=== PATIENT | female | born 1985 | race Caucasian/White ===

== ENCOUNTER 2016-04-25 18:55 | Emergency (ER) | payer SELFPAY ==
[2016-04-25 19:05] VITALS: TEMP 97.9; O2SAT 96
--- NOTE | 2016-04-25 20:14 | EDPHY ---
H & P Smoking Status: Former smoker Time Seen by Provider: 04/25/16 19:13 HPI/ROS: CHIEF COMPLAINT: Head injury HISTORY OF PRESENT ILLNESS: 30-year-old female presents to the emergency department after hitting her head at 11:00 a.m., 6 or 7 hours ago. Patient states that she tripped and fell and hit her head into the wall. She did not fall to the ground she caught herself before she fell. She complains of isolated pain to the right side of her head and her face. She did not lose consciousness. Denies neck pain. Denies chest pain or difficulty breathing. Denies visual symptoms. Denies abdominal pain. Denies any other injury or trauma. The patient was feeling dizzy and presented to the emergency department for evaluation. REVIEW OF SYSTEMS: Constitutional: No fever, no chills. Eyes: No double or blurry vision. ENT: No sore throat. Respiratory: No cough, no shortness of breath. Cardiac: No chest pain. Gastrointestinal: No abdominal pain, vomiting or diarrhea. Genitourinary: No dysuria. Musculoskeletal: No neck or back pain. Skin: No rashes. Neurological: headache. (Chris,Britany M) Past Medical/Surgical History: Negative (Geriin,Britany M) Social History: Single and lives in [place] (Chris,Britany M) Physical Exam: General Appearance: Alert, no distress.Mentating normally and answering questions appropriately. Eyes: Pupils equal and round. Extraocular motions are all intact. Tenderness with palpation to the right side of the face along the lateral side of the orbit. She has mild tenderness to palpate along the right yarsani as well. No palpable crepitus or other bony abnormality. No abrasion. ENT: Mouth: Mucous membranes moist. No dental injury or malocclusion. Respiratory: No wheezing, rhonchi, or rales, lungs are clear to auscultation. Cardiovascular: Regular rate and rhythm. Gastrointestinal: Abdomen is soft and nontender, no masses, no rebound or guarding, bowel sounds normal. Neurological: Alert and oriented x 3, cranial nerves II through XII grossly intact Skin: Warm and dry, no rashes. Musculoskeletal: Nontender to palpate along the cervical, thoracic or lumbar spine. Neck is supple. Extremities: Full range of motion and no peripheral edema. Psychiatric: Patient is oriented X 3, there is no agitation. (Ruthann Perezrina Latia) Constitutional: Initial Vital Signs Temperature (C) 36.6 C 04/25/16 18:55 Heart Rate 66 04/25/16 18:55 Respiratory Rate 16 04/25/16 18:55 Blood Pressure 129/78 H 04/25/16 18:55 O2 Sat (%) 96 04/25/16 18:55 O2 Delivery Mode Room Air Allergies/Adverse Reactions: Penicillins Allergy (Mild, Verified 04/25/16 19:06) Rash Home Medications: Medication Instructions Recorded NK [No Known Home Meds] 04/25/16 Medical Decision Making ED Course/Re-evaluation: 30-year-old female presents to the emergency department with closed head injury. Patient did not lose consciousness. The incident happened over 6 hours ago. She is mentating normally. I discussed the pros and cons of CT imaging of her brain including radiation exposure and the patient declined CT imaging of her brain. I feel that she is competent to make this decision. She was instructed to return if she developed worsening headache, vomiting, altered mental status, or if she felt worse in any way. She was also instructed to avoid any activity that might put her at risk for another head injury for at least 1 week. (GeriBritany ji) Differential Diagnosis: Head injury including but not limited to concussion, skull fracture, intraparenchymal contusion, subarachnoid, subdural and epidural hematoma. (ChrisBritany Latia) Departure - Departure Disposition: Home, Routine, Self-Care Clinical Impression: Head injury Qualifiers: Encounter type: initial encounter Qualified Code(s): S09.90XA - Unspecified injury of head, initial encounter Facial contusion Qualifiers: Encounter type: initial encounter Qualified Code(s): S00.83XA - Contusion of other part of head, initial encounter Condition: Good Instructions: Head Injury (ED), Contusion in Adults (ED) Additional Instructions: You declined CT imaging of the brain to evaluate for intracranial bleeding and or skull fracture. Please return to the emergency department if you develop worsening headache, vomiting, altered mental status, or if you feel worse in any way. Ice to help relieve swelling and pain. Tylenol 1000 mg every 6 hours as needed for pain. Have someone awaken you up once or twice tonight to ask you a few questions and check your mentation. Referrals: Pita Jimenes MD [Medical Doctor] - 1 day, if not improved (Primary care provider information systems administrator)
[2016-04-25 20:29] VITALS: BP 125/71; PULSE 72; RESP 18
== END 2016-04-25 20:23 | disposition home or self-care (01) ==
DX: S00.83XA Contusion of other part of head, initial encounter (principal); W01.198A Fall on same level from slipping, tripping and stumbling with subsequent striking against other object, initial encounter